=== PATIENT | male | born 1945 | race Caucasian/White ===

== ENCOUNTER 2019-07-22 19:12 | Inpatient (IN) | payer OTHER ==
[~2019-07-22] VITALS: Ht 182.9 cm; Wt 111.1 kg
[2019-07-22 19:33] VITALS: BP_SYST 116
[2019-07-22 20:08] LABS: BASOPHILS % (AUTO) 0.4 % (0.0-2.0); EOSINOPHILS # (AUTO) 0.4 K/uL (0.0-0.4); EOSINOPHILS % (AUTO) 3.8 % (0.0-4.0); HEMATOCRIT 41.2 % (36-54); HEMOGLOBIN 13.4 g/dL (14.0-18.0); LYMPHOCYTES # (AUTO) 1.1 K/uL (1.0-5.5); LYMPHOCYTES % (AUTO) 9.3 % (20.5-51.5); MEAN CORPUSCULAR HEMOGLOBIN 32 pg (27-31); MEAN CORPUSCULAR HGB CONC 33 % (32-36); MEAN CORPUSCULAR VOLUME 99 fL (79.0-98.0); MONOCYTES # (AUTO) 1.1 K/uL (0.0-1.0); MONOCYTES % (AUTO) 9.6 % (1.7-9.3); NEUTROPHILS # (AUTO) 8.8 K/uL (1.8-7.7); NEUTROPHILS % (AUTO) 76.9 % (40.0-70.0); PLATELET COUNT (AUTO) 213 K/uL (130-430); RED BLOOD CELL COUNT(AUTO) 4.15 MIL/uL (4.2-6.2); RED CELL DISTRIBUTION WIDTH 14.1 % (9.0-15.0); WHITE BLOOD COUNT (AUTO) 11.5 K/uL (4.8-10.8)
[2019-07-22 20:34] LABS: CALCIUM 8.9 mg/dL (8.4-11.0); CHLORIDE 96 mmol/L (98-107); CREATININE 0.67 mg/dL (0.55-1.30); GLUCOSE 107 mg/dL (70-99); POTASSIUM 4.6 mmol/L (3.5-5.1); SODIUM SERUM 139 mmol/L (136-145); UREA NITROGEN, BLOOD 20 mg/dL (8-21)
[2019-07-22 20:59] LABS: ALANINE AMINOTRANSFERASE 21 U/L (12-78); ALBUMIN 3.3 g/dL (3.4-4.8); ANION GAP < 3 (5-15); ASPARTATE AMINOTRANSFERASE 16 U/L (10-37); TOTAL BILIRUBIN 0.4 mg/dL (0.0-1.0)
[2019-07-22 21:00] LABS: ACETAMINOPHEN < 1 ug/mL (1-30); ALCOHOL, BLOOD < 3 mg/dL (<10)
--- NOTE | 2019-07-22 21:00 | NUR ---
Patient to ER bed 05 to gown for evaluation. Side rails up.
--- NOTE | 2019-07-22 21:10 | NUR ---
Pt brought in from [facility] for increased depression. Pt is A&Ox4. Per facility, pt is here for medical clearance to go to [facility] room 58A. Pt has no complaints noted.
[2019-07-22 21:23] LABS: CHOLESTEROL 228 mg/dL (<200); HDL CHOLESTEROL 63 mg/dL (>45); LDL CHOLESTEROL 136 mg/dL (<100); TRIGLYCERIDES 83 mg/dL (30-150)
--- NOTE | 2019-07-22 22:00 | NUR ---
Urine and MRSA collected. Specimens sent to lab
--- NOTE | 2019-07-22 22:12 | NUR ---
ER Dr. Marlow at bedside examining patient.
--- NOTE | 2019-07-22 22:14 | NUR ---
Respiratory at bedside.
[2019-07-22] MEDS ORDERED: LevALBUTEROL HCL 1.25 MG/0.5 ML *CONC.* VIAL.NEB (XOPENEX CONC.) INH ONE (22:15)
[2019-07-22] MEDS ORDERED: IPRATROPIUM BROM 0.5 MG/2.5 ML VIAL.NEB (ATROVENT) INH ONE (22:15)
[2019-07-22 22:21] LABS: BILIRUBIN,URINE NEGATIVE (NEGATIVE); CLARITY/URINE CLEAR (CLEAR); COLOR,URINE YELLOW (YELLOW); GLUCOSE,URINE NEGATIVE (NEGATIVE); KETONES,URINE NEGATIVE (NEGATIVE); LEUKOCYTE ESTERASE ,URINE 1+ (NEGATIVE); NITRITE, URINE POSITIVE (NEGATIVE); PROTEIN URINE NEGATIVE (NEGATIVE); UROBILINOGEN,URINE 0.2 (0.2-1.0)
[2019-07-22 22:26] LABS: BLOOD, URINE TRACE (NEGATIVE)
[2019-07-22 22:39] LABS: BACTERIA,URINE MODERATE /HPF (None Seen)
[2019-07-22 22:40] LABS: CALCIUM OXALATE CRYSTALS,UR 0-10 /HPF (None Seen)
[2019-07-22] MEDS ORDERED: NEU100 PO (22:42)
[2019-07-22] MEDS ORDERED: ALPR0.5T PO (22:42)
[2019-07-22] MEDS ORDERED: BISA10SU61 RC (22:42)
[2019-07-22] MEDS ORDERED: ASA81 PO (22:42)
[2019-07-22] MEDS ORDERED: ACET-73 PO (22:42)
[2019-07-22] MEDS ORDERED: IPRA4AER INH (22:42)
[2019-07-22] MEDS ORDERED: MOM PO (22:42)
[2019-07-22] MEDS ORDERED: MULT-1089 PO (22:42)
[2019-07-22] MEDS ORDERED: PATANOL OP (22:42)
[2019-07-22] MEDS ORDERED: ASCO500T20 PO (22:42)
[2019-07-22] MEDS ORDERED: ZINC100T2 PO (22:42)
[2019-07-22] MEDS ORDERED: PRED10TA PO (22:42)
[2019-07-22] MEDS ORDERED: VIS25 PO (22:42)
[2019-07-22] MEDS ORDERED: GUAI120L56 PO (22:42)
[2019-07-22] MEDS ORDERED: AMI200 PO (22:42)
[2019-07-22] MEDS ORDERED: TRAZ-250 PO (22:42)
[2019-07-22] MEDS ORDERED: PRO40 PO (22:42)
[2019-07-22] MEDS ORDERED: DOCU-144 PO (22:42)
--- NOTE | 2019-07-22 22:43 | NUR ---
Medication reconciliation completed with information provided by facility. Any prior medication reconciliation on file was reviewed and corrected.
[2019-07-22 22:44] LABS: BARBITURATE, URINE NEGATIVE (NEG <=200); BENZODIAZEPINE, URINE POSITIVE (NEG <=150); CANNABINOID, URINE NEGATIVE (NEG <=50); COCAINE, URINE NEGATIVE (NEG <=150); METHAMPHETAMINES SCREEN,URINE NEGATIVE (NEG <=500); OPIATE, URINE NEGATIVE (NEG <=100); PHENCYCLIDINE SCREEN,URINE NEGATIVE (NEG <=25); UR TRICYCLIC ANTIDEPRESSANTS NEGATIVE (NEG <=300); URINE AMPHETAMINE NEGATIVE (NEG <=500); URINE METHADONE NEGATIVE (NEG <=200); URINE OXYCODONE SCREEN NEGATIVE (NEG <=100); URINE PROPOXYPHENE SCREEN NEGATIVE (NEG <=300)
--- NOTE | 2019-07-22 23:29 | NUR ---
Pt sleeping in bed with no complaints at this time. Will continue to monitor.
[2019-07-23] MEDS ORDERED: cefTRIAXone 1 GM IVPB PREMIX 50 ML IV ONE (00:15)
[2019-07-23] MEDS ORDERED: LORazepam 1 MG TABLET PO ONE (00:30)
[2019-07-23] MEDS ORDERED: GABAPENTIN 100 MG CAPSULE PO ONE (00:30)
--- NOTE | 2019-07-23 01:00 | NUR ---
radiology at bedside.
--- NOTE | 2019-07-23 02:09 | NUR ---
Pt requests urinal. Pt provided urinal. Will continue to monitor.
[2019-07-23] MEDS ORDERED: methylPREDNISolone SOD SUCC/PF 62.5 MG/ML VIAL IVP ONE (03:00)
--- NOTE | 2019-07-23 03:33 | NUR ---
Patient will be admitted to care of YOHANNES. Admitted to TELEMETRY unit. Awaiting bed placement. Belongings list completed. Complete and up to date summary report printed. SBAR report to be given at bedside with opportunity for questions.
--- NOTE | 2019-07-23 04:59 | NUR ---
ADMISSION: The patient, MYLENE PEREZ, 73 y/o, M admitted by NELLA SHEFFIELD MD,WITH THE DIAGNOSIS OF COPD EXACERBATION TO ROOM 132 A , was given written information regarding hospital policies, unit procedures and contact persons.
[2019-07-23 05:03] VITALS: BP_SYST 153
[2019-07-23] MEDS ORDERED: ACETAMINOPHEN 500 MG TABLET PO PRN (05:15)
--- NOTE | 2019-07-23 05:36 | NUR ---
CONSULT: CONSULT CALLED FOR DR. BEATRICE ANDERSON I SPOKE WITH RUDDY ISIDRO REASON FOR CONSULT: COPD REQUESTING CONSULT: DR. SHEFFIELD BALL MILL MIXER PHONE NUMBER: [phone]
--- NOTE | 2019-07-23 05:45 | NUR ---
REPORT GIVEN FROM RN FROM ER, A/O/X/4, RESPIRATIONS RAPID AND LABORED, O2 @ 2l /M VIA NC, HOB ELEVATED.RED RASH NOTED ALL OVER BODY, PHOTO TAKEN, SOB ON EXCERTION, USED URINAL STRAW COLORED URINE NOTED, RESTING QUIETLY WATCHING TV.S/L PATENT AND INTACT ON LEFT HAND THUMB., RESTING QUIETLY IN BED.
[2019-07-23 05:55] VITALS: BP_SYST 110
[2019-07-23] MEDS: PANTOPRAZOLE SODIUM 40 MG TAB PO SCH ×3 (06:44→08:50)
[2019-07-23] MEDS: methylPREDNISolone SOD SUCC/PF 62.5 MG/ML VIAL IVP SCH ×3 (06:46→21:52)
--- NOTE | 2019-07-23 06:54 | NUR ---
PATIENT REFUSED SOLU- MEDROL 60MG IVP AND PROTONIX 40 MG PO STATES DOES NOT WANT THEM, NOT GIVEN.
[2019-07-23] MEDS: DOCUSATE SODIUM 100 MG CAPSULE PO SCH ×2 (08:48→21:45)
[2019-07-23] MEDS: AMIODARONE HCL 200 MG TABLET PO SCH ×2 (08:48→21:48)
[2019-07-23] MEDS: ASPIRIN 81 MG TAB.CHEW PO SCH (08:49)
[2019-07-23] MEDS: AZITHROMYCIN 500 MG in NS 250 ML IV SCH (08:49)
[2019-07-23 08:50] VITALS: BP_SYST 123
--- NOTE | 2019-07-23 09:55 | NUR ---
Nutrition Update Humphrey Scale 11 noted. Pt admitted for COPD. Diet: 2 gm Na BMI: 33.[address] to follow per nutrition care standards.
[2019-07-23 12:15] VITALS: BP_SYST 123
[2019-07-23] MEDS: ALBUTEROL SULFATE 0.083% 2.5 MG/3 ML VIAL.NEB INH SCH ×2 (13:42→19:00)
[2019-07-23] MEDS: IPRATROPIUM BROM 0.5 MG/2.5 ML VIAL.NEB (ATROVENT) INH SCH ×2 (13:42→19:00)
[2019-07-23 16:05] VITALS: BP_SYST 131
[2019-07-23] MEDS ORDERED: ENOXAPARIN SODIUM 40 MG/0.4 ML SYRINGE SUBCUT ONE (16:15)
--- NOTE | 2019-07-23 17:23 | NUR ---
Routine Patient resting comfortably in bed with RT at bedside. Patient refused lovenox. Patient stable at this time.
[2019-07-23] MEDS: ALBUTEROL SULFATE 0.083% 2.5 MG/3 ML VIAL.NEB INH PRN ×2 (17:39→23:29)
[2019-07-23] MEDS: IPRATROPIUM BROM 0.5 MG/2.5 ML VIAL.NEB (ATROVENT) INH PRN ×2 (17:39→23:30)
[2019-07-23 20:00] VITALS: BP_SYST 131
--- NOTE | 2019-07-23 20:00 | NUR ---
RECIEVED REPORT @ START OF SHIFT,A/O/X/4, RESPIRATIONS EVEN AND UNLABORED, O2M@ 2L/M VIA N/C, PRODUCTIVE COUGH NOTED SOB ON EXCERTION,BEDREST, VOIDING CLEAR YELLOW URINE VIA URINAL,S/L PATENT& INTACT IN RIGHT INDEX FINGER DENIES PAIN,SR'S UP X'S 3, CALL LIGHT WITHIN REACH, BED IN LOW POSITION.WILL CONTINUE TO MONITOR CLOSELY FOR S/S OF DISTRESS
--- NOTE | 2019-07-23 20:19 | NUR ---
PAGE PAGE DOCTOR YOHANNES FOR ORDERS
--- NOTE | 2019-07-23 20:44 | NUR ---
2nd page paged doctor jose again for orders
[2019-07-23] MEDS: traZODone HCL 50 MG TABLET (DESYREL) PO SCH (21:00)
[2019-07-23] MEDS ORDERED: ALPRAZolam 0.25 MG TABLET PO SCH (21:00)
[2019-07-23] MEDS: acetaZOLAMIDE 250 MG TABLET (DIAMOX) PO SCH (21:44)
[2019-07-23] MEDS: GABAPENTIN 100 MG CAPSULE PO SCH (21:52)
--- NOTE | 2019-07-24 | NUR ---
BIPAP MACHINE APPLIED TO PATIENT BY RESPIRTORY THERAPIST AND TOLERATING WELL, MEDICATED EARLIER WITH XANAX PO, 0.5MG FOR INCREASED ANXIETY X'S ONE AND EFFECTIVE, PATIENT MUCH LESS ANXIOUS, RESTING QUIETLY IN BED WITH EYES CLOSED.
[2019-07-24 00:44] VITALS: BP_SYST 128
[2019-07-24] MEDS: cefTRIAXone 1 GM in D5W 50 ML IV SCH (01:24)
--- NOTE | 2019-07-24 04:00 | NUR ---
RESTING QUIETLY IN BED WITH EYES CLOSED AND BIPAP MACHINE FUNCTIONING PROPERLY ON PATIENT, IN NO ACUTE RESP/CARDIAC DISTRESS, WILL CONTINUE TO MONITOR CLOSELY FOR ANY S/S OF DISTRESS
--- NOTE | 2019-07-24 04:55 | NUR ---
TOOK PT OFF BIPAP. PT COMPLAINED HES NOT GETTING ENOUGH AIR. PLACED BACK ON 1L N/C. Addendum: 07/24/19 at 0501 by Deonna Almodovar RT Amended: Links added.
[2019-07-24] MEDS: methylPREDNISolone SOD SUCC/PF 62.5 MG/ML VIAL IVP SCH ×3 (06:00→21:25)
[2019-07-24] MEDS: AZITHROMYCIN 500 MG in NS 250 ML IV SCH (06:09)
[2019-07-24] MEDS: GABAPENTIN 100 MG CAPSULE PO SCH ×3 (06:10→21:20)
[2019-07-24] MEDS: PANTOPRAZOLE SODIUM 40 MG TAB PO SCH (06:11)
[2019-07-24 07:08] LABS: BASOPHILS # (AUTO) 0.1 K/uL (0.0-0.2); BASOPHILS % (AUTO) 0.8 % (0.0-2.0); EOSINOPHILS # (AUTO) 0.8 K/uL (0.0-0.4); EOSINOPHILS % (AUTO) 8.1 % (0.0-4.0); HEMATOCRIT 40.9 % (36-54); HEMOGLOBIN 13.3 g/dL (14.0-18.0); LYMPHOCYTES # (AUTO) 1.3 K/uL (1.0-5.5); LYMPHOCYTES % (AUTO) 13.9 % (20.5-51.5); MEAN CORPUSCULAR HEMOGLOBIN 32 pg (27-31); MEAN CORPUSCULAR HGB CONC 33 % (32-36); MEAN CORPUSCULAR VOLUME 99 fL (79.0-98.0); MONOCYTES # (AUTO) 1.1 K/uL (0.0-1.0); MONOCYTES % (AUTO) 11.2 % (1.7-9.3); NEUTROPHILS # (AUTO) 6.2 K/uL (1.8-7.7); PLATELET COUNT (AUTO) 202 K/uL (130-430); RED BLOOD CELL COUNT(AUTO) 4.13 MIL/uL (4.2-6.2); RED CELL DISTRIBUTION WIDTH 14.3 % (9.0-15.0); WHITE BLOOD COUNT (AUTO) 9.4 K/uL (4.8-10.8)
[2019-07-24] MEDS: IPRATROPIUM BROM 0.5 MG/2.5 ML VIAL.NEB (ATROVENT) INH SCH ×3 (07:09→20:29)
[2019-07-24] MEDS: ALBUTEROL SULFATE 0.083% 2.5 MG/3 ML VIAL.NEB INH SCH ×3 (07:09→20:29)
[2019-07-24 07:35] LABS: CHLORIDE 98 mmol/L (98-107); CREATININE 0.68 mg/dL (0.55-1.30); GLUCOSE 90 mg/dL (70-99); POTASSIUM 3.9 mmol/L (3.5-5.1); SODIUM SERUM 137 mmol/L (136-145); UREA NITROGEN, BLOOD 14 mg/dL (8-21)
[2019-07-24 07:43] LABS: ANION GAP < 3 (5-15)
--- NOTE | 2019-07-24 07:45 | NUR ---
Received patient alert, awake, oriented, currently receiving breathing treatment. no s/s of distress. informed about the POC. verbalized understanding. iv atb therapy infusing. no swelling or infiltration noted. iv access at right index finger # 22. flushing good. call light within reach. bed alarm on. encourage to call when assistance needed.
[2019-07-24 07:57] VITALS: BP_SYST 126
[2019-07-24] MEDS: ASPIRIN 81 MG TAB.CHEW PO SCH (08:43)
[2019-07-24] MEDS: DOCUSATE SODIUM 100 MG CAPSULE PO SCH ×2 (08:43→21:20)
[2019-07-24] MEDS: acetaZOLAMIDE 250 MG TABLET (DIAMOX) PO SCH ×2 (08:44→21:20)
[2019-07-24] MEDS: AMIODARONE HCL 200 MG TABLET PO SCH ×2 (08:44→21:22)
[2019-07-24] MEDS: ENOXAPARIN SODIUM 40 MG/0.4 ML SYRINGE SUBCUT SCH (08:45)
[2019-07-24] MEDS: ALPRAZolam 0.25 MG TABLET PO PRN ×2 (11:21→21:26)
[2019-07-24 12:00] VITALS: BP_SYST 123
--- NOTE | 2019-07-24 13:50 | NUR ---
currently off unit for CT scan of chest ordered.
--- NOTE | 2019-07-24 16:00 | NUR ---
PATIENT RESTING: Patient resting quietly. No acute distress noted. Vital signs within normal range.
--- NOTE | 2019-07-24 17:36 | NUR ---
Fast Food Crew Member: conduct a DCPA INSPECTOR REPAIRER SANDSTONE introduced self to pt. He stated he was up for the interview. Pt.wants to have physical therapy services so he can walk again. He also stated he wants to get back on his anxiety meds, but stated the doctors take it away from him. He went on to say that they gave him Xanx on this day and he was finally able to sleep. He said he felt better. Pt. did say he has a daughter who resides in [place] but that she would not cloth picker the phone to speak to anyone. INSPECTOR REPAIRER SANDSTONE was able to complete the DCPA. Pt. thanked INSPECTOR REPAIRER SANDSTONE who will remain available as needed.
--- NOTE | 2019-07-24 18:50 | NUR ---
patient resting easy arousal when calling name. stated "I wants to sleep and i will eat later". vital sign stable, afebrile. no s/s of distress. all needs mets. no other concerned noted.
[2019-07-24 18:58] VITALS: BP_SYST 103
[2019-07-24 20:00] VITALS: BP_SYST 121
--- NOTE | 2019-07-24 20:00 | NUR ---
Initial note: Received report from daysshahnazft RN. Patient is awake in bed, no acute distress. Even and unlabored breathing on 1L NC. IV fluids infusing as ordered, no infiltration. Call light with patient. Safety, fall, contact isolation precautions in place. Will continue with plan of care.
[2019-07-24] MEDS: traZODone HCL 50 MG TABLET (DESYREL) PO SCH (21:00)
--- NOTE | 2019-07-24 23:03 | NUR ---
Rounds: Patient is sleeping. No acute distress, even and unlabored breathing on 1L NC. IV site patent and benign. Call light with patient. Will continue monitoring.
[2019-07-25] MEDS: cefTRIAXone 1 GM in D5W 50 ML IV SCH (00:49)
[2019-07-25 01:49] VITALS: BP_SYST 95
--- NOTE | 2019-07-25 02:03 | NUR ---
Rounds: Patient is sleeping. No acute distress. Tolerating 1L NC. IV site patent and benign. Call light with patient. Will continue to monitor.
[2019-07-25] MEDS: ALBUTEROL SULFATE 0.083% 2.5 MG/3 ML VIAL.NEB INH SCH ×5 (02:30→23:10)
[2019-07-25] MEDS: IPRATROPIUM BROM 0.5 MG/2.5 ML VIAL.NEB (ATROVENT) INH SCH ×5 (02:31→23:10)
[2019-07-25] MEDS: methylPREDNISolone SOD SUCC/PF 62.5 MG/ML VIAL IVP SCH (05:07)
[2019-07-25] MEDS: GABAPENTIN 100 MG CAPSULE PO SCH ×3 (05:09→21:32)
[2019-07-25] MEDS: ALPRAZolam 0.25 MG TABLET PO PRN (05:10)
[2019-07-25] MEDS: AZITHROMYCIN 500 MG in NS 250 ML IV SCH (05:12)
--- NOTE | 2019-07-25 05:32 | NUR ---
BIPAP on: Patient requested to have BIPAP applied. RT at bedside to apply mask per MD order. Will continue monitoring.
--- NOTE | 2019-07-25 06:24 | NUR ---
Closing note: Patient is resting in bed, no acute distress. Tolerating BIPAP at ordered settings. IV fluids infusing well, no infiltration to site. All needs met. Safety, fall, contact isolation precautions in place. Will endorse care to dayshift RN.
[2019-07-25] MEDS: PANTOPRAZOLE SODIUM 40 MG TAB PO SCH (07:00)
--- NOTE | 2019-07-25 07:30 | NUR ---
received patient aaox 4. lungs bilaterally diminished at the bases. abdomen soft and non distended. has iv access on the rt index finger #22. saline lock. voiding at the urinal. no bowel movement today.
[2019-07-25 07:31] LABS: ANION GAP 5 (5-15); CHLORIDE 100 mmol/L (98-107); CREATININE 0.77 mg/dL (0.55-1.30); GLUCOSE 86 mg/dL (70-99); POTASSIUM 3.7 mmol/L (3.5-5.1); SODIUM SERUM 137 mmol/L (136-145); UREA NITROGEN, BLOOD 13 mg/dL (8-21)
[2019-07-25 07:50] VITALS: BP_SYST 135
--- NOTE | 2019-07-25 08:30 | NUR ---
has oxygen of 1 liter no sob noted.
[2019-07-25] MEDS: ENOXAPARIN SODIUM 40 MG/0.4 ML SYRINGE SUBCUT SCH (09:00)
[2019-07-25] MEDS: AMIODARONE HCL 200 MG TABLET PO SCH ×2 (09:08→21:33)
[2019-07-25] MEDS: ASPIRIN 81 MG TAB.CHEW PO SCH (09:09)
[2019-07-25] MEDS: acetaZOLAMIDE 250 MG TABLET (DIAMOX) PO SCH ×2 (09:09→11:15)
[2019-07-25] MEDS: DOCUSATE SODIUM 100 MG CAPSULE PO SCH ×2 (09:14→21:33)
--- NOTE | 2019-07-25 09:17 | NUR ---
due medication given. refused to have lovenox subu.
--- NOTE | 2019-07-25 10:00 | NUR ---
AM CARE DONE BY CHIRAG. BED LINEN CHANGED.
--- NOTE | 2019-07-25 11:19 | NUR ---
MADE COMFORTABLE. NO COMPLAINED SO FAR.
--- NOTE | 2019-07-25 14:00 | NUR ---
OFFERED WATER PITCHER. ASSISTS ON ADLS.
--- NOTE | 2019-07-25 15:13 | NUR ---
RESTING AT THIS TIME.
[2019-07-25 15:47] VITALS: BP_SYST 120
[2019-07-25 16:00] VITALS: BP_SYST 151
--- NOTE | 2019-07-25 17:00 | NUR ---
still asleep. refused to eat at this time. wants to sleep.
--- NOTE | 2019-07-25 18:36 | NUR ---
Dietitian Recommendations *Continue 2gmNa diet *Ensure Enlive TID w/ meals. Each serving provides 325kcal and 20gPro. *Encourage PO intake Please see Nutrition Assessment for further details. LT, RD
--- NOTE | 2019-07-25 19:12 | NUR ---
perineal care done. bed changed. voided x 2. bed linen changed. still with iv access on rt index finger saline lock. endorsed to incoming nurse. Anastasiia MUNOZ
[2019-07-25] MEDS: traZODone HCL 50 MG TABLET (DESYREL) PO SCH (21:32)
[2019-07-25 22:00] VITALS: BP_SYST 124
[2019-07-25 23:44] VITALS: BP_SYST 118
[2019-07-26] MEDS: cefTRIAXone 1 GM in D5W 50 ML IV SCH (00:27)
[2019-07-26] MEDS: IPRATROPIUM BROM 0.5 MG/2.5 ML VIAL.NEB (ATROVENT) INH SCH ×4 (00:43→19:25)
[2019-07-26] MEDS: ALBUTEROL SULFATE 0.083% 2.5 MG/3 ML VIAL.NEB INH SCH ×4 (00:44→19:25)
[2019-07-26] MEDS: PANTOPRAZOLE SODIUM 40 MG TAB PO SCH (05:00)
[2019-07-26] MEDS: GABAPENTIN 100 MG CAPSULE PO SCH ×3 (05:00→20:39)
[2019-07-26] MEDS: AZITHROMYCIN 500 MG in NS 250 ML IV SCH (05:01)
--- NOTE | 2019-07-26 06:30 | NUR ---
Current assessment unchanged.
--- NOTE | 2019-07-26 07:30 | NUR ---
received patient aaox 3. lungs bilaterally diminished at the bases. has oxygen of 1 liter nc. no sob nor pain noted. able to urinate in the urinal. abdomen soft and non distended. still iv access on the rt index finger #22 saline lock. patent/dry. bed low position, alarmed and locked. will continue to monitor patients status.
[2019-07-26] MEDS: DOCUSATE SODIUM 100 MG CAPSULE PO SCH ×2 (08:41→20:37)
[2019-07-26] MEDS: acetaZOLAMIDE 250 MG TABLET (DIAMOX) PO SCH (08:41)
[2019-07-26] MEDS: AMIODARONE HCL 200 MG TABLET PO SCH ×2 (08:42→20:38)
[2019-07-26] MEDS: PREDNISONE 20 MG TABLET PO SCH (08:43)
[2019-07-26] MEDS: ASPIRIN 81 MG TAB.CHEW PO SCH (08:43)
[2019-07-26] MEDS: ENOXAPARIN SODIUM 40 MG/0.4 ML SYRINGE SUBCUT SCH (08:44)
[2019-07-26] MEDS: ALPRAZolam 0.25 MG TABLET PO PRN ×3 (08:50→20:37)
--- NOTE | 2019-07-26 08:51 | NUR ---
due medication given as ordered.
[2019-07-26 09:10] VITALS: BP_SYST 150
--- NOTE | 2019-07-26 10:00 | NUR ---
patient resting at this time. wants to sleep.
[2019-07-26 10:51] VITALS: BP_SYST 150
--- NOTE | 2019-07-26 12:00 | NUR ---
had lunch good. while watching tv. no sob nor pain noted.
[2019-07-26 12:30] VITALS: BP_SYST 119
--- NOTE | 2019-07-26 15:29 | NUR ---
due medication given as ordered. request xanax for anxiety and jittery. made comfortable.
[2019-07-26 16:30] VITALS: BP_SYST 105
--- NOTE | 2019-07-26 17:41 | NUR ---
Psych consult called: for Dr. Olivas (Dr. Guzman educational diagnostician), regarding depression, ordered by Dr. Rivera, spoke with Glory. Face sheet faxed to [phone]
--- NOTE | 2019-07-26 18:39 | NUR ---
closing patient eating dinner. patient aao x 3. but weak as verbalized. has new iv access on the left wrist #22. saline lock. no sob, nor pain noted. able to urinate at the urinal freely. bed low position,locked and alarmed. all needs are met. endorsed to incoming nurse.
[2019-07-26 20:00] VITALS: BP_SYST 124
[2019-07-26] MEDS: traZODone HCL 50 MG TABLET (DESYREL) PO SCH (20:39)
--- NOTE | 2019-07-26 22:32 | NUR ---
PATIENT IN BED. NO ACUTE DISTRESS NOTED. WILL CONTINUE TO MONITOR.
[2019-07-26 23:41] VITALS: BP_SYST 104
[2019-07-27] MEDS: cefTRIAXone 1 GM in D5W 50 ML IV SCH (00:20)
[2019-07-27] MEDS: ALBUTEROL SULFATE 0.083% 2.5 MG/3 ML VIAL.NEB INH SCH ×5 (01:12→20:09)
[2019-07-27] MEDS: IPRATROPIUM BROM 0.5 MG/2.5 ML VIAL.NEB (ATROVENT) INH SCH ×5 (01:13→20:09)
[2019-07-27] MEDS: AZITHROMYCIN 500 MG in NS 250 ML IV SCH (05:00)
[2019-07-27] MEDS: GABAPENTIN 100 MG CAPSULE PO SCH ×3 (05:00→22:15)
[2019-07-27] MEDS: PANTOPRAZOLE SODIUM 40 MG TAB PO SCH (05:01)
[2019-07-27] MEDS: ALPRAZolam 0.25 MG TABLET PO PRN ×2 (05:05→22:15)
[2019-07-27 06:29] LABS: CALCIUM 9.1 mg/dL (8.4-11.0); CHLORIDE 100 mmol/L (98-107); CREATININE 0.87 mg/dL (0.55-1.30); GLUCOSE 83 mg/dL (70-99); POTASSIUM 3.7 mmol/L (3.5-5.1); SODIUM SERUM 134 mmol/L (136-145); UREA NITROGEN, BLOOD 13 mg/dL (8-21)
[2019-07-27 06:37] LABS: ANION GAP < 3 (5-15)
[2019-07-27] MEDS: ENOXAPARIN SODIUM 40 MG/0.4 ML SYRINGE SUBCUT SCH (10:14)
[2019-07-27] MEDS: acetaZOLAMIDE 250 MG TABLET (DIAMOX) PO SCH (10:14)
[2019-07-27] MEDS: DOCUSATE SODIUM 100 MG CAPSULE PO SCH ×2 (10:14→20:39)
[2019-07-27] MEDS: PREDNISONE 20 MG TABLET PO SCH (10:15)
[2019-07-27] MEDS: ASPIRIN 81 MG TAB.CHEW PO SCH (10:15)
[2019-07-27] MEDS: AMIODARONE HCL 200 MG TABLET PO SCH ×2 (10:15→20:38)
[2019-07-27 12:00] VITALS: BP_SYST 110
--- NOTE | 2019-07-27 12:25 | NUR ---
Discharge Planning: DCP faxed pt referral to [facility] (f [phone] p [phone]), [facility] (f [phone] p [phone]) DCP to follow up.
[2019-07-27 16:00] VITALS: BP_SYST 136
--- NOTE | 2019-07-27 19:35 | NUR ---
Opening Note Received report from dayshift RN, patient is resting in bed, awake, A/Ox3, no signs of acute distress, even and unlabored breathing on 1L NC, IV to left FA is SL, no complaints of pain. Safety, fall, and aspiration precautions in place, bed locked and in lowest position, bed alarm on, bed close to nursing station, call light with patient, contact isolation precautions in place, will endorse care to dayshift RN.
[2019-07-27 20:00] VITALS: BP_SYST 120
[2019-07-27] MEDS: PIPERACILLIN/TAZO 3.375/DEX-IS 50 ML IV SCH (20:21)
[2019-07-27] MEDS: MUPIROCIN 2% TOPICAL OINTMENT 22 GM TP SCH (20:38)
[2019-07-27] MEDS: traZODone HCL 50 MG TABLET (DESYREL) PO SCH (20:39)
--- NOTE | 2019-07-27 20:39 | NUR ---
Med Pass Patient refused 2100 scheduled Desyrel medication despite education, patient agreed to other 2100 scheduled medications. Education provided, patient verbalized understanding, administered medications, and patient tolerated well. All safety precautions in place, call light with patient, will continue to monitor.
--- NOTE | 2019-07-27 22:15 | NUR ---
PRN Medication Patient requesting PRN xanax medication, patient is verbalizing increased anxiety. PRN xanax indicated per MD order, educated patient on medication uses and potential side effects, patient able to verbalize understanding, administered medication per MD order, patient tolerated well. All safety precautions in place, call light with patient, will continue to monitor.
[2019-07-28] MEDS: PIPERACILLIN/TAZO 3.375/DEX-IS 50 ML IV SCH ×4 (00:39→17:07)
--- NOTE | 2019-07-28 00:39 | NUR ---
RN Rounds Patient is resting in bed, eyes closed, no signs of acute distress, even and unlabored breathing on BIPAP, IV to left FA is SL. Safety, fall, and aspiration precautions in place, bed locked and in lowest position, bed alarm on, bed close to nursing station, call light with patient, contact isolation precautions in place, will continue to monitor.
[2019-07-28] MEDS: ALBUTEROL SULFATE 0.083% 2.5 MG/3 ML VIAL.NEB INH SCH ×4 (00:48→18:54)
[2019-07-28] MEDS: IPRATROPIUM BROM 0.5 MG/2.5 ML VIAL.NEB (ATROVENT) INH SCH ×4 (00:48→18:54)
[2019-07-28 02:11] VITALS: BP_SYST 95
--- NOTE | 2019-07-28 03:20 | NUR ---
RN Rounds Patient is resting in bed, eyes closed, even and unlabored breathing on BIPAP, no signs of acute distress, IV to left FA is SL. Safety, fall, and aspiration precautions in place, bed locked and in lowest position, bed alarm on, bed close to nursing station, call light with patient, contact isolation precautions in place, will continue to monitor.
[2019-07-28] MEDS: GABAPENTIN 100 MG CAPSULE PO SCH ×2 (05:45→13:55)
[2019-07-28] MEDS: ALPRAZolam 0.25 MG TABLET PO PRN ×3 (06:22→20:39)
--- NOTE | 2019-07-28 06:22 | NUR ---
Med Pass Patient refused 0700 scheduled protonix medication despite education.
[2019-07-28] MEDS: PANTOPRAZOLE SODIUM 40 MG TAB PO SCH (06:23)
--- NOTE | 2019-07-28 06:40 | NUR ---
Closing Note Patient is resting in bed, awake, no signs of acute distress, even and unlabored breathing on 1L NC, IV to left FA is SL, no complaints of pain. Safety, fall, and aspiration precautions in place, bed locked and in lowest position, bed alarm on, bed close to nursing station, call light with patient, will endorse care to dayshift RN.
[2019-07-28] MEDS: ASPIRIN 81 MG TAB.CHEW PO SCH (08:57)
[2019-07-28] MEDS: DOCUSATE SODIUM 100 MG CAPSULE PO SCH (08:57)
[2019-07-28] MEDS: AMIODARONE HCL 200 MG TABLET PO SCH (08:57)
[2019-07-28] MEDS: acetaZOLAMIDE 250 MG TABLET (DIAMOX) PO SCH (08:58)
[2019-07-28] MEDS: PREDNISONE 20 MG TABLET PO SCH (09:00)
[2019-07-28] MEDS: ENOXAPARIN SODIUM 40 MG/0.4 ML SYRINGE SUBCUT SCH (09:00)
[2019-07-28] MEDS: MUPIROCIN 2% TOPICAL OINTMENT 22 GM TP SCH (09:01)
[2019-07-28 09:05] VITALS: BP_SYST 118
--- NOTE | 2019-07-28 09:05 | NUR ---
Patient resting comfortably in bed with no complaint of pain or respiratory distress. Scheduled medications given per order. Patient stable at this time.
--- NOTE | 2019-07-28 11:10 | NUR ---
Scheduled IV abx given per order. Patient resting quietly in bed with no respiratory distress noted. Patient stable.
[2019-07-28 12:00] VITALS: BP_SYST 112
--- NOTE | 2019-07-28 13:54 | NUR ---
Discharge Planning: DCP received message from [facility] [place] (f [phone] p [phone]) patient accepted to [facility], transportation with [facility] ([phone]) 7:30pm P/U . Patient packet taken to nurse stationnurse made aware.
--- NOTE | 2019-07-28 13:57 | NUR ---
Routine Scheduled medication given per order. Patient requested prn xanax. Addendum: 07/28/19 at 1404 by Alesia Azul RN Xanax given per order. Patient stable.
[2019-07-28 15:59] VITALS: BP_SYST 112
[2019-07-28 16:10] VITALS: BP_SYST 96
--- NOTE | 2019-07-28 17:09 | NUR ---
Routine Scheduled IV abx given per order. Patient resting quietly in bed with no distress noted. Patient stable at this time.
--- NOTE | 2019-07-28 17:35 | NUR ---
Called report Called report to Lena Negro RN at [facility]. Patient will go to Room 311A. .
--- NOTE | 2019-07-28 19:50 | NUR ---
Opening Note Received report from dayshift RN, patient is resting in bed, awake, A/Ox3, no signs of acute distress, even and unlabored breathing on 1L NC, IV to left FA is SL, no complaints of pain. Safety, fall, and aspiration precautions in place, bed locked and in lowest position, bed alarm on, bed close to nursing station, call light with patient, contact isolation precautions in place, awaiting EMT transportation for transfer, will continue to monitor.
[2019-07-28 20:00] VITALS: BP_SYST 130
--- NOTE | 2019-07-28 20:52 | NUR ---
PT TRANSFERRED Transfer packet with Transfer Orders and Medication Reconciliation form given to EMT with report. Exitcare provided. [facility] ID band removed, replaced with ID band with pt's name and . IV catheter intact to continue IV antibiotics. All belongings sent with patient. Patient left floor via gurney escorted by EMT in no distress.
--- NOTE | 2019-07-29 10:45 | NUR ---
PHYSICAL THERAPY CO-SIGN The Physical Therapy Progress Notes documented by Pl Sql Programmer have been reviewed. Reviewed/Co-Signed by: Rashel Pedroza PT Documentation Done by: ASHELY ANN PTA Addendum: 07/29/19 at 1048 by Rashel Pedroza PT Amended: Links added.
== END 2019-07-28 20:53 | DRG 189 ==
LOC: SED 19:12 → STU 07-23 03:30
PROVIDERS: ADMIT Internal Medicine Hospice and Palliative Medicine; ATTEND Internal Medicine Hospice and Palliative Medicine
PROC: 5A09357 Assistance with Respiratory Ventilation, Less than 24 Consecutive Hours, Continuous Positive Airway Pressure (ICD-10-PCS; principal; 2019-07-27)
DX: J96.22 Acute and chronic respiratory failure with hypercapnia (principal); J44.1 Chronic obstructive pulmonary disease with (acute) exacerbation; N39.0 Urinary tract infection, site not specified; J96.21 Acute and chronic respiratory failure with hypoxia; F32.9 Major depressive disorder, single episode, unspecified; F41.1 Generalized anxiety disorder; I10 Essential (primary) hypertension; Z79.899 Other long term (current) drug therapy; Z99.81 Dependence on supplemental oxygen; Z87.891 Personal history of nicotine dependence; Z91.19 Patient's noncompliance with other medical treatment and regimen
CPT/HCPCS: 36415; 36600; 71045; 71250-TC; 80048; 80053; 80061; 80307; 81000-TC; 82803-TC; 83036; 83880; 84484; 85025; 87040-TC; 87081; 87086; 87186-TC; 94640; 94660; 94760; 96365; 96367; 96375; 97110-GP; 97112-GP; 97530-GP; G0378; G0480; G0481; G0482; J0456; J0696; J1650; J2543; J2930; J7050; J7060; J7512; J7612; J7613

== ENCOUNTER 2019-08-18 08:59 | Emergency (ER) | payer OTHER ==
[~2019-08-18] VITALS: Ht 182.9 cm; Wt 54.4 kg
[~2019-08-18 08:59] MED LIST: ACET-73 PO; ALPR0.5T PO; AMI200 PO; ASA81 PO; ASCO500T20 PO; BISA10SU61 RC; DOCU-144 PO; GUAI120L56 PO; IPRA4AER INH; MOM PO; MULT-1089 PO; NEU100 PO; PATANOL OP; PRED10TA PO; PRO40 PO; TRAZ-250 PO; VIS25 PO; ZINC100T2 PO
--- NOTE | 2019-08-18 09:10 | NUR ---
Patient to ER bed 05 to gown for evaluation. Side rails up.
[2019-08-18 09:36] VITALS: BP_SYST 152
--- NOTE | 2019-08-18 09:37 | NUR ---
ER Dr. Bermudez at bedside examining patient.
--- NOTE | 2019-08-18 09:56 | NUR ---
Patient is taken to CT via gurney, in stable condition.
--- NOTE | 2019-08-18 09:58 | NUR ---
Flu and MRSA swabbed and dropped off at the lab.
--- NOTE | 2019-08-18 10:00 | NUR ---
ECG done at bedside as ordered by Dr. Bermudez. Patient tolerated the procedure well. ER Physician given copy of EKG for review.
--- NOTE | 2019-08-18 10:06 | NUR ---
Reconciled meds. Belonging's list done.
--- NOTE | 2019-08-18 10:07 | NUR ---
technology solutions architect at bedside collecting blood specimen as ordered by Dr. Bermudez. Patient tolerated the procedure well.
[2019-08-18 10:29] LABS: BASOPHILS # (AUTO) 0.1 K/uL (0.0-0.2); BASOPHILS % (AUTO) 1.1 % (0.0-2.0); EOSINOPHILS # (AUTO) 0.1 K/uL (0.0-0.4); EOSINOPHILS % (AUTO) 0.8 % (0.0-4.0); HEMATOCRIT 37.9 % (36-54); HEMOGLOBIN 12.3 g/dL (14.0-18.0); LYMPHOCYTES # (AUTO) 0.2 K/uL (1.0-5.5); LYMPHOCYTES % (AUTO) 2.5 % (20.5-51.5); MEAN CORPUSCULAR HEMOGLOBIN 32 pg (27-31); MEAN CORPUSCULAR HGB CONC 33 % (32-36); MEAN CORPUSCULAR VOLUME 98 fL (79.0-98.0); MONOCYTES # (AUTO) 1.2 K/uL (0.0-1.0); MONOCYTES % (AUTO) 13.5 % (1.7-9.3); NEUTROPHILS # (AUTO) 7.5 K/uL (1.8-7.7); NEUTROPHILS % (AUTO) 82.1 % (40.0-70.0); PLATELET COUNT (AUTO) 304 K/uL (130-430); RED BLOOD CELL COUNT(AUTO) 3.86 MIL/uL (4.2-6.2); RED CELL DISTRIBUTION WIDTH 13.4 % (9.0-15.0); WHITE BLOOD COUNT (AUTO) 9.1 K/uL (4.8-10.8)
[2019-08-18 10:43] LABS: ANION GAP 10 (5-15); CALCIUM 8.8 mg/dL (8.4-11.0); CHLORIDE 97 mmol/L (98-107); CREATININE 0.73 mg/dL (0.55-1.30); GLUCOSE 78 mg/dL (70-99); POTASSIUM 4.2 mmol/L (3.5-5.1); SODIUM SERUM 137 mmol/L (136-145); UREA NITROGEN, BLOOD 12 mg/dL (8-21)
[2019-08-18 10:46] LABS: INR 1.1 (0.80-1.20); PROTHROMBIN TIME 11.1 SECS (9.5-12.5)
[2019-08-18 10:48] LABS: ALANINE AMINOTRANSFERASE 25 U/L (12-78); ALBUMIN 2.8 g/dL (3.4-4.8); ASPARTATE AMINOTRANSFERASE 32 U/L (10-37); TOTAL BILIRUBIN 0.4 mg/dL (0.0-1.0)
--- NOTE | 2019-08-18 11:15 | NUR ---
# 24 gauge angiocath placed to LFA. Use of asceptic technique. Opsite placed over site. Blood return noted. Flushed with 10 cc of normal saline. No evidence of infiltration noted. Patient tolerated well.
--- NOTE | 2019-08-18 11:59 | NUR ---
Patient resting comfortably in bed. No acute distress noted. Vital signs within normal range.
[2019-08-18] MEDS ORDERED: IPRATROPIUM/ALBUTEROL SULFATE 3 ML AMPUL.NEB (DUONEB) INH ONE (12:45)
--- NOTE | 2019-08-18 13:05 | NUR ---
Patient currently receiving breathing treatment per MD order before discharge.
--- NOTE | 2019-08-18 13:28 | NUR ---
Report given to Analy of [facility] at [phone].
[2019-08-18 14:44] VITALS: BP_SYST 124
--- NOTE | 2019-08-18 14:45 | NUR ---
Patient given written and verbal discharge instructions and verbalizes understanding. ER MD discussed with patient the results and treatment provided. Patient in stable condition. ID arm band removed. IV catheter removed intact and dressing applied, no active bleeding. Rx of Tamiflu given. Patient educated on pain management and to follow up with PMD. Pain Scale 0/10. Opportunity for questions provided and answered. Medication side effect fact sheet provided.
== END 2019-08-18 14:44 | disposition home or self-care (01) ==
LOC: SED 08:59
DX: B34.9 Viral infection, unspecified (principal); J44.9 Chronic obstructive pulmonary disease, unspecified; Z79.82 Long term (current) use of aspirin; Z79.899 Other long term (current) drug therapy
CPT/HCPCS: 36415; 71045; 80053; 83605; 84484; 85025; 85610-TC; 85730-TC; 86710; 87040-TC; 87081; 93005; 94640; 99285